=== PATIENT | male | born 1995 | race African-American/Black ===

== ENCOUNTER 2017-01-29 22:16 | Emergency (ER) | payer MEDICAID ==
[~2017-01-29] VITALS: Ht 185.4 cm; Wt 82.0 kg
[2017-01-29 22:19] VITALS: BP 135/69
== END 2017-01-30 03:25 | disposition left against medical advice (07) ==
LOC: ER 22:16
DX: Z53.21 Procedure and treatment not carried out due to patient leaving prior to being seen by health care provider (principal)

== ENCOUNTER 2017-08-02 23:02 | Emergency (ER) | payer MEDICAID ==
[~2017-08-02] VITALS: Ht 185.4 cm; Wt 77.0 kg
[2017-08-03] MEDS ORDERED: HYDROCODONE/ACETAMINOPHEN 5/325MG TABLET PO ONE (02:45)
[2017-08-03 02:50] VITALS: BP 125/69
== END 2017-08-03 03:44 | disposition home or self-care (01) ==
LOC: ER 23:02
DX: N50.812 Left testicular pain (principal); J45.909 Unspecified asthma, uncomplicated; F12.10 Cannabis abuse, uncomplicated; Z98.890 Other specified postprocedural states
CPT/HCPCS: 99283

== ENCOUNTER 2018-06-07 17:06 | Emergency (ER) | payer MEDICAID ==
[~2018-06-07] VITALS: Ht 185.4 cm; Wt 81.0 kg
[2018-06-07 18:30] VITALS: BP 135/66
== END 2018-06-07 19:20 | disposition left against medical advice (07) ==
LOC: ER 17:06
DX: M25.561 Pain in right knee (principal); Z53.21 Procedure and treatment not carried out due to patient leaving prior to being seen by health care provider; V43.52XA Car driver injured in collision with other type car in traffic accident, initial encounter; Y93.89 Activity, other specified; Y92.89 Other specified places as the place of occurrence of the external cause; Y99.8 Other external cause status

== ENCOUNTER 2018-12-16 20:45 | Emergency (ER) | payer MEDICAID ==
[~2018-12-16] VITALS: Ht 185.4 cm; Wt 78.0 kg
[2018-12-17] MEDS ORDERED: IPRATROPIUM BROMIDE (0.02%) 0.5MG/2.5ML NEB HHN STA (00:27)
[2018-12-17] MEDS ORDERED: PREDNISONE 20MG TABLET PO STA (00:27)
[2018-12-17] MEDS ORDERED: ALBUTEROL (0.083%) 2.5MG/3ML NEB HHN STA (00:27)
[2018-12-17 01:54] VITALS: BP 138/85
== END 2018-12-17 01:56 | disposition home or self-care (01) ==
LOC: ER 20:45
DX: J45.901 Unspecified asthma with (acute) exacerbation (principal); J06.9 Acute upper respiratory infection, unspecified; F17.200 Nicotine dependence, unspecified, uncomplicated
CPT/HCPCS: 99283; J7512; J7611

== ENCOUNTER 2018-12-22 12:36 | Emergency (ER) | payer MEDICAID ==
[~2018-12-22] VITALS: Ht 188 cm; Wt 77.0 kg
[2018-12-22] MEDS ORDERED: ALBUTEROL (0.083%) 2.5MG/3ML NEB HHN STA (13:37)
[2018-12-22] MEDS ORDERED: IPRATROPIUM BROMIDE (0.02%) 0.5MG/2.5ML NEB HHN STA (13:37)
[2018-12-22] MEDS ORDERED: PREDNISONE 20MG TABLET PO STA (13:37)
[2018-12-22 14:42] VITALS: BP 120/77
== END 2018-12-22 14:44 | disposition home or self-care (01) ==
LOC: ER 12:40
DX: J45.901 Unspecified asthma with (acute) exacerbation (principal); F17.200 Nicotine dependence, unspecified, uncomplicated; F12.10 Cannabis abuse, uncomplicated; Z98.890 Other specified postprocedural states; Z71.6 Tobacco abuse counseling
CPT/HCPCS: 71045; 93005; 94640; 99283; 99406; J7512; J7611

== ENCOUNTER 2019-12-03 06:28 | Emergency (ER) | payer MEDICAID, OTHER ==
[~2019-12-03] VITALS: Ht 182.9 cm; Wt 78.0 kg
[2019-12-03 07:15] VITALS: BP 117/70
== END 2019-12-03 07:18 | disposition home or self-care (01) ==
LOC: ER 06:41
DX: J06.9 Acute upper respiratory infection, unspecified (principal); J45.909 Unspecified asthma, uncomplicated; F12.10 Cannabis abuse, uncomplicated; Z98.890 Other specified postprocedural states
CPT/HCPCS: 99283

== ENCOUNTER 2021-10-12 07:08 | Emergency (ER) | payer MEDICAID, OTHER ==
[~2021-10-12] VITALS: Ht 175.3 cm; Wt 81.0 kg
[2021-10-12 07:19] VITALS: BP 106/62
[2021-10-12] MEDS ORDERED: LIDOCAINE HCL 1% 20ML VIAL (Pyxis) INJ INFIL ONE (07:45)
[2021-10-12] MEDS ORDERED: CEFTRIAXONE SODIUM 500 MG/VIAL IM ONE (07:45)
[2021-10-12] MEDS ORDERED: DOXY100C5 MT (07:55)
[2021-10-15 05:12] LABS: NEISSERIA GONORRHOEAE NAA Negative (Negative)
== END 2021-10-12 08:21 | disposition home or self-care (01) ==
LOC: ER 07:08
DX: N34.2 Other urethritis (principal); Z20.2 Contact with and (suspected) exposure to infections with a predominantly sexual mode of transmission
CPT/HCPCS: 87491; 87591; 96372; 99283; J0696; J3490